=== PATIENT | male | born 1985 | race Caucasian/White ===

== ENCOUNTER 2018-11-06 11:43 | Emergency (ER) | payer OTHER, SELFPAY ==
[2018-11-06 11:47] VITALS: BP 136/80; PULSE 100; RESP 16; TEMP 37.1; O2SAT 99; BMI 25.0
--- NOTE | 2018-11-06 11:57 | DI.US.S_ITS ---
PROCEDURE: US SCROTUM INDICATIONS: PAIN 1 WEEK VASECTOMY TECHNIQUE: Real-time scanning was performed of the scrotum and testicles, with image documentation. Color and pulse Doppler interrogation was performed of both testicles. COMPARISON: None. FINDINGS: Right: Testicle is normal in size at 2.6 x 3.5 x 5.2 cm, and homogenous in echotexture. Epididymis is normal in overall size and morphology. No hydrocele or varicoceles. Overlying scrotal skin is normal in thickness. There is a small 7 x 9 x 11 mm cyst at the epididymis without adjacent inflammation Left: Testicle is normal in size at 2.6 x 3.4 x 4.3 cm, and homogeneous in echotexture. Epididymis is normal in overall size and morphology. No hydrocele or varicoceles. Overlying scrotal skin is normal in thickness. Doppler: Color and pulse Doppler demonstrate normal and symmetric arterial flow in both testicles. IMPRESSION: Source of pain after vasectomy is not seen. Incidental mode is made of a 11 mm maximal dimension right epididymal cyst. Blood flow is patent and normal to each testis. No abnormal adjacent fluid collection suggestive of hematoma is found. Dictated by: Goldy Gonzalez M.D. on 11/06/2018 at 12:44 Approved by: Goldy Gonzalez M.D. on 11/06/2018 at 12:46
--- NOTE | 2018-11-06 12:00 | ED_ITS ---
HPI - Male Genitourinary General Chief complaint: Urogenital-Male Stated complaint: Scrotal pain sudden onset Time Seen by Provider: 11/06/18 11:48 Source: patient and other (Dr. Sarah, at [facility]. Performed procedure) Mode of arrival: EMS Limitations: no limitations History of Present Illness HPI Narrative: This is a 33-year-old male who comes to the emergency department. Patient states that he had sudden onset of testicular pain earlier today. Patient is had a bowel movement and he was standing up and pulling up his pants he had sudden onset of pain in both testicles patient states it did not really seem to be lateralize to 1 to the other. Also radiates just a little bit up into the bladder area. Patient states he felt little clammy and nauseated. Pain has slowly subsided particularly as he has just been sitting but every time they hit a bump patient is quite uncomfortable. Patient did have a vasectomy about a week ago, it was uneventful with a little bit of bruising and swelling. He has had some mild feel pain but nothing intense. Patient has not had any fevers, no pain with urination or difficulty with urination. He has not appreciated any redness, streaking or signs of infection there has not been any drainage from the vasectomy surgical incision. The patient does have a history significant for ankylosing spondylitis with a little bit of joint issues and he is on a monoclonal antibody Q 10 days. He has not had any other complications. While in route patient was a little bit shaky EMS checked her sugar and it was 45 he was given some glucose tabs rechecked here and he was in the 90s. Related Data Home Medications Medication Instructions Recorded Confirmed adalimumab 40 mg/0.8 mL 40 mg SUBCUT Q10D each 09/25/18 11/06/18 subcutaneous pen kit dextroamphetamine-amphetamine ER 25 mg PO QAM 09/25/18 11/06/18 25 mg 24hr capsule,extend release albuterol sulfate [ProAir HFA] 1 puff INHALATION PRN PRN 11/06/18 11/06/18 Allergies Allergy/AdvReac Type Severity Reaction Status Date / Time No Known Drug Allergies Allergy Verified 11/06/18 11:52 Review of Systems Review of Systems ROS Unobtainable: All systems reviewed & are unremarkable except as noted in HPI and below Constitutional Denies chills, Denies fever(s), Denies lethargy and Denies weakness Gastrointestinal Gastrointestinal: Reports abdominal pain (Suprapubic, resolved), Denies constip ation, Denies diarrhea, Reports nausea and Denies vomiting Genitourinary Reports as per HPI, Denies difficulty urinating, Denies genital pain, Denies dysuria, Denies flank pain, Denies penile discharge, Reports scrotal swelling (Starting after vasectomy, no sudden changes), Reports testicular pain (Bilaterally), Denies urinary frequency, Denies urinary hesitancy, Denies urinary incontinence and Denies urinary urgency Neurologic Denies weakness [facility] Medical History (Updated 11/06/18 @ 13:45 by Rosa Maria Lopez DO) Ankylosing spondylitis (Chronic) Surgical History (Updated 11/06/18 @ 12:04 by Rosa Maria Lopez DO) Hx of vasectomy (Acute) Social History (Updated 11/06/18 @ 12:04 by Rosa Maria Loepz DO) Smoking Status: Never smoker 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 HEENT: Head normocephalic, atraumatic, EOMI, pupils reactive, face symmetric, moist mucous membranes NECK: Supple, full range of motion CARDIOVASCULAR: Regular rate and rhythm without murmurs, rubs or gallops. RESPIRATORY: Breath sounds equal bilaterally, no wheezes rales or rhonchi. ABDOMEN: Soft, nontender. Normoactive bowel sounds all 4 quadrants. No guarding or rebound, rigidity, no mass : No CVA tenderness Male: normal external examination except for swelling bilateral testicles, patient has no penile discharge or lesions, right testicle is very mildly tender, left testicles is moderately tender, cremasteric reflex intact, no inguinal hernias noted. patient is uncircumcised. Foreskin is easily retracted and replaced. No discharge. No tenderness to the penis. EXTREMITIES: Normal range of motion, no clubbing or edema. Neurovascularly intact. normal gait. Patient is quite uncomfortable when he tries to stand. NEUROLOGICAL: Cranial nerves II through XII grossly intact. Moving all extremities SKIN: Warm, dry, no petechiae, no rashes or lesions. Initial Vital Signs Initial Vital Signs: Vital Signs Temperature 98.8 F 11/06/18 11:47 Pulse Rate 100 H 11/06/18 11:47 Respiratory Rate 16 11/06/18 11:47 Blood Pressure 136/80 11/06/18 11:47 Pulse Oximetry 99 11/06/18 11:47 Course Orders Ordered: ED Orders 11/06/18 11:57 US scrotum Stat 11/06/18 12:31 Urinalysis and Microscopic Stat Urine Chlamydia Gonorrhea PCR Stat 11/06/18 12:36 Basic Metabolic Panel Stat Complete Blood Count AUTO DIFF Stat Discontinued Medications Ketorolac Tromethamine (Toradol) 30 mg IV NOW ONE Stop: 11/06/18 11:57 Last Admin: 11/06/18 12:30 Dose: 30 mg Vital Signs - 8 hr 11/06/18 11:47 11/06/18 13:26 11/06/18 13:55 Temperature 98.8 F Pulse Rate 100 H 72 63 Respiratory Rate 16 15 14 Blood Pressure 136/80 126/63 Pulse Oximetry 99 95 99 MDM - Male Genitourinary Lab Data Result diagrams: 11/06/18 12:36 11/06/18 12:36 Lab Results 11/06/18 11/06/18 11/06/18 Range/Units 12:31 12:31 12:36 WBC 13.9 H (4.5-11.0) X10^3/uL RBC 5.46 (4.5-5.9) X10^6/uL Hgb 16.6 (13.5-17.5) g/dL Hct 48.4 (41-53) % MCV 88.7 (80-100) fL MCH 30.3 (26-34) PG MCHC 34.2 (30-36) % RDW 12.6 (11.6-14.8) % Plt Count 209 (150-400) X10^3/uL Neut % (Auto) 84.3 H (50-75) % Lymph % (Auto) 9.0 L (25-40) % [place] % (Auto) 5.7 (3-14) % Eos % (Auto) 0.8 L (2-4) % Baso % (Auto) 0.2 (0-2) % Neut # (Auto) 07850 H (4080-8317) /uL Lymph # (Auto) 1200 (7464-5643) /uL [place] # (Auto) 800 (0-900) /uL Eos # (Auto) 100 (0-450) /uL Baso # (Auto) 0 (0-100) /uL Sodium (137-145) mmol/L Potassium (3.4-5.1) mmol/L Chloride (98-107) mmol/L Carbon Dioxide (22-32) mmol/L BUN (9-20) mg/dL Creatinine (0.66-1.25) mg/dL Estimated GFR (>60) mL/min BUN/Creatinine Ratio (6-22) Glucose (70-100) mg/dL Calcium (8.4-10.2) mg/dL Urine Color Yellow Urine Appearance Clear Urine pH 8.5 H (4.5-8.0) Ur Specific [place] 1.020 (1.000-1.035) Urine Protein Trace H (Negative) Urine Glucose (UA) Negative (Negative) g/dL Urine Ketones Negative (NEGATIVE) Urine Occult Blood Trace-lysed (Negative) Urine Nitrate Negative (Negative) Urine Bilirubin Negative (NEGATIVE) Urine Urobilinogen 0.2 (0.2) E.U./dL Ur Leukocyte Esterase Negative (NEGATIVE) Urine RBC 1-5/hpf (0-5/HPF) Urine WBC 1-5/hpf (0-5/HPF) Ur Squamous Epith Cells 1-5 /hpf (0-5/HPF) Urine Bacteria Few (2-10) H (None) Urine Sperm Present Ur Culture Indicated? Cult not indicated Ur Chlamydia DNA (PCR) Not detected N gonorrhoeae DNA (PCR) Not detected 11/06/18 Range/Units 12:36 WBC (4.5-11.0) X10^3/uL RBC (4.5-5.9) X10^6/uL Hgb (13.5-17.5) g/dL Hct (41-53) % MCV (80-100) fL MCH (26-34) PG MCHC (30-36) % RDW (11.6-14.8) % Plt Count (150-400) X10^3/uL Neut % (Auto) (50-75) % Lymph % (Auto) (25-40) % [place] % (Auto) (3-14) % Eos % (Auto) (2-4) % Baso % (Auto) (0-2) % Neut # (Auto) (6565-7973) /uL Lymph # (Auto) (8558-3986) /uL [place] # (Auto) (0-900) /uL Eos # (Auto) (0-450) /uL Baso # (Auto) (0-100) /uL Sodium 139 (137-145) mmol/L Potassium 4.6 (3.4-5.1) mmol/L Chloride 103 (98-107) mmol/L Carbon Dioxide 27 (22-32) mmol/L BUN 17 (9-20) mg/dL Creatinine 0.90 (0.66-1.25) mg/dL Estimated GFR > 60.0 (>60) mL/min BUN/Creatinine Ratio 18.9 (6-22) Glucose 133 H (70-100) mg/dL Calcium 10.0 (8.4-10.2) mg/dL Urine Color Urine Appearance Urine pH (4.5-8.0) Ur Specific [place] (1.000-1.035) Urine Protein (Negative) Urine Glucose (UA) (Negative) g/dL Urine Ketones (NEGATIVE) Urine Occult Blood (Negative) Urine Nitrate (Negative) Urine Bilirubin (NEGATIVE) Urine Urobilinogen (0.2) E.U./dL Ur Leukocyte Esterase (NEGATIVE) Urine RBC (0-5/HPF) Urine WBC (0-5/HPF) Ur Squamous Epith Cells (0-5/HPF) Urine Bacteria (None) Urine Sperm Ur Culture Indicated? Ur Chlamydia DNA (PCR) N gonorrhoeae DNA (PCR) Point of Care Testing Glucose POC 94 MDM Narrative Medical decision making narrative: Discussed with patient I am going to plan for ultrasound for evaluate for torsion but also for infection, UA as well as CBC BMP. This was ordered as patient had a hypoglycemic episode en route. He was given glucose tab rechecked here is in the 90s. Because there is potential for surgery for torsion we did not feed him any food but do have an IV placed and can do continuous Accu-Cheks. Patient initially deferred any pain medication b ut was much more more comfortable after taking off his clothing so was given Toradol. Patient's lab work shows a slightly elevated white count, the rest of his lab work is normal. patient's pain has greatly improved. Ultrasound does not show any clear signs of torsion. There is a small cyst although this does not appear to be the likely cause of his pain. there is no other signs of hematoma, issues with vasculature or infection at this time. Urinalysis does not show any acute infection, urine GC is negative. Patient I did discuss that there is always potential for patient have a torsion that then resolved and reoccurs. If he has recurrent symptoms he should return for repeat ultrasound. Also given referral for Urology. Patient is comfortable with this plan. Discharge Plan Departure Patient Disposition: Home Clinical Impression: Testicular pain Discharge Date/Time: 11/06/18 13:55 Interventions: ED Discharge Assessment Last Done: 11/06/18 13:55 Instructions: DI for Testicular Pain Activity Restrictions/Additional Instructions: Follow-up with your physician in the next 2-3 days for recheck. I would also recommend following up with Urology if your pain is not resolving quickly. Included is a referral for urology. You have a small 7 x 9 x 11 mm cyst at the epididymis on the right without any adjacent inflammation otherwise normal ultrasound with normal color and Doppler in the arteries of both testicles. There is always a potential for a person to have a torsion that improves and then reoccurs if you have increasing or worsening symptoms return for recheck. Continue ibuprofen up to 800 mg every 8 hours and/or Tylenol up to a 1000 mg every 8 hours as needed. Return to the emergency department for rapidly worsening pain, lightheadedness, passing out, abdominal pain, signs of infection, redness, increasing swelling, drainage that is purulent, decreased sensation or other new or concerning symptoms. Prescriptions: No Action albuterol sulfate [ProAir HFA] 90 mcg/actuation HFA aerosol inhaler 1 puff Inhalation PRN PRN (Reason: Shortness Of Breath) RF: 0 dextroamphetamine-amphetamine [Adderall XR] 25 mg capsule,extended release 24hr 25 mg PO QAM RF: 0 Humira Pen 40 mg/0.8 mL pen injector kit 40 mg SUBCUT Q10D RF: 0 Referrals: Pranav Odell MD [Non-Staff] -
[2018-11-06] MEDS: KETOROLAC 60 MG/2 ML VIAL 30 MG IV (12:30)
[2018-11-06 12:49] LABS: Add Manual Diff / Slide Review NO; Basophils Absolute Auto 0 /uL (0-100); Basophils Percent Auto 0.2 % (0-2); Eosinophils Absolute Auto 100 /uL (0-450); Eosinophils Percent Auto 0.8 % (2-4); Hematocrit 48.4 % (41-53); Hemoglobin 16.6 g/dL (13.5-17.5); Lymphocytes Absolute Auto 1200 /uL (1100-4500); Mean Corpuscular HGB Conc 34.2 % (30-36); Mean Corpuscular Hemoglobin 30.3 PG (26-34); Mean Corpuscular Volume 88.7 fL (80-100); Monocytes Absolute Auto 800 /uL (0-900); Monocytes Percent Auto 5.7 % (3-14); Neutrophils Absolute Auto 11700 /uL (1500-7000); Neutrophils Percent Auto 84.3 % (50-75); Platelet Count 209 X10^3/uL (150-400); Red Blood Cell Count 5.46 X10^6/uL (4.5-5.9); Red Cell Distribution Width 12.6 % (11.6-14.8); White Blood Cell Count 13.9 X10^3/uL (4.5-11.0)
[2018-11-06 13:04] LABS: BUN Creatinine Ratio 18.9 (6-22); Blood Urea Nitrogen 17 mg/dL (9-20); Carbon Dioxide 27 mmol/L (22-32); Chloride 103 mmol/L (98-107); Estimated Glomerular Filt Rate > 60.0 mL/min (>60); Glucose 133 mg/dL (70-100); HEMOLYSIS 15 (0-50); Potassium 4.6 mmol/L (3.4-5.1); Sodium 139 mmol/L (137-145)
[2018-11-06 13:11] LABS: Appearance Urine UA CLEAR; Bilirubin Urine UA NEGATIVE (NEGATIVE); Color Urine UA YELLOW; Glucose Urine UA NEGATIVE (Negative); Ketones Urine UA NEGATIVE (NEGATIVE); Leukocyte Esterase Urine UA NEGATIVE (NEGATIVE); Nitrite Urine UA NEGATIVE (Negative); Occult Blood Urine UA TRACE-LYSED (Negative); Protein Urine UA TRACE (Negative); Urobilinogen Urine UA 0.2 E.U./dL (0.2); pH Urine UA 8.5 (4.5-8.0)
[2018-11-06 13:26] VITALS: PULSE 72; RESP 15; O2SAT 95
[2018-11-06 13:27] LABS: Bacteria Urine Few (2-10); RBC Urine 1-5/HPF (0-5/HPF); Squamous Epithelial Cell Urine 1-5 /HPF (0-5/HPF); WBC Urine 1-5/HPF (0-5/HPF)
[2018-11-06 13:28] LABS: Culture Indicated Urine Cult Not Indicated; Sperm Urine PRESENT
[2018-11-06 13:55] VITALS: BP 126/63; PULSE 63; RESP 14; O2SAT 99
[2018-11-06 14:36] LABS: Urine N gonorrhoeae NOT DETECTED
[2018-11-06 14:40] LABS: Urine Chlamydia NOT DETECTED
== END 2018-11-06 13:55 | disposition home or self-care (01) ==
PROVIDERS: Emergency Provider Emergency Medicine
DX: N50.819 Testicular pain, unspecified (principal)
CPT/HCPCS: 76870; 80048; 81001; 82962; 85025; 87491; 87591; 96374; 99282; 99284; J1885